=== PATIENT | male | born 1965 | race Two or more races ===

== ENCOUNTER 2023-06-06 15:20 | Emergency (ER) | payer OTHER, SELFPAY ==
[2023-06-06] VITALS (21 sets, daily range): BP systolic 103–126; BP diastolic 58–76; PULSE 64–77; RESP 15–25; TEMP 36.2; O2SAT 94–100
--- NOTE | ~2023-06-06 | XR_ITS ---
EXAMINATION: XR chest 2V Exam Date/Time: 06/06/2023 17:54 COMPUTER PROGRAMMING SUPERVISOR HISTORY: chest pain Comparison: None. RESULT: Lines, tubes, and devices: None. Lungs and pleura: Clear. Cardiomediastinal silhouette: Unremarkable. Other: No acute osseous or upper abdominal finding. IMPRESSION: No acute cardiopulmonary process. Reviewed, dictated and finalized at location K. UTER PROGRAMMING SUPERVISOR
--- NOTE | ~2023-06-06 | CT_ITS ---
EXAMINATION: CT abdomen pelvis w con DATE: 06/06/2023 18:03 INDICATION: LLQ and LUQ pain, inferior chest pain TECHNIQUE: Computed tomography (CT) of the abdomen and pelvis was performed with 100 mL Omnipaque-350 intravenous contrast. Automated exposure control and iterative reconstruction technique were employe d. The dose-length product was 281.19 mGy-cm. COMPARISON: X-ray chest, same date. FINDINGS: Lower thorax: Emphysematous change. Dependent atelectasis Liver: Normal. Biliary/Gallbladder: Gallbladder is collapsed. No bile duct dilation. Pancreas: No mass or duct dilation. Spleen: Normal. Adrenals:No mass. Kidneys: No suspicious mass, obstructing stone, or hydronephrosis. GI tract: Mild distal esophageal and gastric wall edema. No small or large bowel dilation. Normal bakari endix. Mesentery/Peritoneum: No ascites, mass, or free air. Retroperitoneum: No mass. Atherosclerotic abdominal aortic and/or arterial calcifications. Pelvis: Moderate bladder wall thickening in a partially distended urinary bladder. Soft Tissues: Uncomplicated small fat-containing bilateral angle hernias. Bones: No acute osseous finding. IMPRESSION: Mild esophagitis/gastritis. Cystitis versus wall thickening from incomplete urinary bladder distention. Reviewed, dictated and finalized at location K. LLING MACHINE OPERATOR
[2023-06-06 16:07] LABS: Basophils Absolute Auto 0.1 K/mm3 (0.0-0.1); Basophils Percent Auto 0.9 % (0.2-1.2); Eosinophils Absolute Auto 0.4 K/mm3 (0-0.3); Eosinophils Percent Auto 3.8 % (0-4.4); Hematocrit 49.2 % (42.0-52.0); Hemoglobin 16.2 g/dL (14.0-18.0); Immature Granulocyte Absolute 0.04 K/mm3 (0.00-0.031); Immature Granulocyte Percent A 0.4 % (0-0.5); Lymphocytes Absolute Auto 3.51 K/mm3 (0.9-3.2); Lymphocytes Percent Auto 33.5 % (18.3-44.2); Mean Corpuscular HGB Conc 32.9 g/dl (32-36); Mean Corpuscular Hemoglobin 29.2 pg (26-34); Mean Corpuscular Volume 88.8 fl (80-100); Mean Platelet Volume 10.1 fl (7.4-10.4); Monocytes Absolute Auto 0.4 K/mm3 (0.1-0.6); Neutrophils Percent Auto 57.4 % (45.5-73.1); Platelet Count Result 262 k/mm3 (150-375); Red Blood Count 5.54 M/mm3 (4.6-6.20); Red Cell Distribution Width 13.6 % (11.5-14.5); White Blood Count 10.5 K/mm3 (4.5-10.0)
[2023-06-06 16:12] LABS: Appearance Urine Clear (Clear); Bilirubin Urine Negative (Negative); Blood Urine Negative (Negative); Color Urine Yellow (Yellow); Glucose Urine UA Negative (Negative); Ketones Urine Negative (Negative); Leukocyte Esterase Ur Negative LEU/UL (Negative); Nitrate Urine Negative (Negative); Protein Urine Negative (Negative); Specific Grav Ur 1.015 (1.001-1.035); Urobilinogen Urine 0.2 mg/dL (<2.0)
[2023-06-06 16:14] LABS: Alanine Aminotransferase 25 U/L (6-50); Albumin Level 4.6 g/dL (3.5-5.1); Alkaline Phosphatase 62 U/L (38-126); Anion Gap 9 mmol/L (8-16); Aspartate Amino Transferase 25 U/L (17-59); Bilirubin,Total 0.5 mg/dL (0.2-1.3); Blood Urea Nitrogen 10 mg/dL (9-20); Calcium 9.1 mg/dL (8.4-10.2); Carbon Dioxide 26 mmol/L (22-30); Chloride 103 mmol/L (98-107); Estimated CRCL calculation 96 ml/min; Estimated Glomerular Filt Rate > 60; Glucose 160 mg/dL (65-110); Lipase 71 U/L (23-300); Potassium 3.6 mmol/L (3.4-5.0); Sodium 138 mmol/L (137-145)
[2023-06-06 16:20] LABS: Add Urine Microscopic? NO
--- NOTE | 2023-06-06 17:46 | ECG_ITS ---
Measurements Intervals [place] Rate: 68 P: 54 KS: 149 QRS: 85 QRSD: 95 T: 66 QT: 374 QTc: 398 Interpretive Statements SINUS RHYTHM NORMAL ECG NO PREVIOUS ECG AVAILABLE FOR COMPARISON Electronically Signed On 06-07-2023 6:13:59 SOLE LEVELER by Guille Crow D.O.
[2023-06-06 18:14] LABS: Prothrombin Time 13.7 Seconds (11.1-14.7)
[2023-06-06] MEDS: MAG HYDROX/AL HYDROX/SIMETH 30 ML UDC PO (18:14)
[2023-06-06] MEDS: FAMOTIDINE 20 MG/2 ML VIAL IV PUSH (18:14)
[2023-06-06] MEDS: SODIUM CHLORIDE 0.9% IV 1,000 ML 999 ML IV CONT (18:14)
[2023-06-06 18:15] LABS: Partial Thromboplastin Time 26.3 SECONDS (22.3-36.8)
[2023-06-06 18:28] LABS: NT Pro B Type Natriuretic Pept < 20 pg/mL (19.9-100); Troponin I < 0.012 ng/mL (0.000-0.034)
--- NOTE | 2023-06-06 19:26 | ED.ABDPAIN ---
HPI - Abdominal Pain General Chief Complaint: Abdominal Pain Stated Complaint: abd pain Time Seen by Provider: 06/06/23 17:03 History of Present Illness HPI narrative: 57-year-old male reports for evaluation for intermittent left upper quadrant, left lower quadrant and chest pain for the past 10 days. Patient states the pain goes away after eating, however gets worse when he eats tomatoes. He states the pain starts in his left upper quadrant and then moved up into his chest, that he experiences a pins and needle sensation in his left lower quadrant. At the time of my evaluation he is asymptomatic. He denies shortness of breath, fever, cough or congestion, nausea or vomiting, diarrhea, melena or hematochezia, hemoptysis, urinary complaints. States his chest pain does not radiate anywhere it is not associated with nausea or diaphoresis. No family history of coronary artery disease. He denies history of hypertension, hyperlipidemia, diabetes. Related Data Allergies Allergy/AdvReac Type Severity Reaction Status Date / Time No Known Allergies Allergy Verified 06/06/23 18:13 Review of Systems Review of Systems: CONSTITUTIONAL: Denies fever, chills, or sweats. EYES: Denies visual changes, redness, or discharge. ENT: Denies rhinorrhea, congestion, sore throat, or otalgia. CARDIOVASCULAR: See HPI RESPIRATORY: Denies cough or dyspnea. GASTROINTESTINAL: See HPI GENITOURINARY: Denies dysuria or hematuria. SKIN: Denies rash or itching. MUSCULOSKELETAL: Denies back pain, joint pain, or myalgia. NEUROLOGIC: Denies headache, numbness, or weakness. PSYCHIATRIC: Denies anxiety or depression. Exam Narrative: GENERAL: Well-appearing, well-nourished, and in no acute distress. HEAD: Normocephalic, atraumatic. EYES: PERRLA and EOMI. ENT: Nares clear, no rhinorrhea or epistaxis. Mucous membranes moist. NECK: Supple. CHEST: Clear to auscultation. No respiratory distress. HEART: Regular rate and rhythm. No murmur heard. Normal peripheral pulses. ABDOMEN: normoactive bowel sounds. Abdomen soft with mild tenderness in the left lower quadrant. No guarding, rebound or rigidity. No overlying skin changes. No CVA tenderness. EXTREMITIES: Normal range of motion. No edema. SKIN: Warm, dry, no rash. NEURO: No focal deficits. Alert and oriented x3 Course Vital Signs Vital signs: Vital Signs Temperature 97.2 F L 06/06/23 15:46 Pulse Rate 77 06/06/23 15:46 Respiratory Rate 18 06/06/23 15:46 Blood Pressure 118/67 06/06/23 15:46 Pulse Oximetry 99 06/06/23 15:46 Oxygen Delivery Room Air 06/06/23 15:46 Temperature 97.2 F L 06/06/23 15:46 Pulse Rate 64 06/06/23 21:00 Respiratory Rate 17 06/06/23 21:00 Blood Pressure 103/58 L 06/06/23 21:00 Pulse Oximetry 98 06/06/23 21:00 Oxygen Delivery Room Air 06/06/23 15:46 MDM - Abdominal Pain MDM Narrative Medical decision making narrative: 57-year-old male reports for evaluation for intermittent left upper quadrant and left lower quadrant abdominal pain and chest pain for the past 10 days. See HPI for further history. Vitals are stable and he is afebrile. he is well appearing on exam. Exam is significant for the above. Lab significant for leukocytosis of 10.5, no bandemia. Chemistries are largely unremarkable. Urinalysis unremarkable. Chest x-ray shows no acute cardiopulmonary disease. EKG shows sinus rhythm, no ischemic changes. Troponin x2 negative. Lipase normal. BNP less than 20. Coags unremarkable. CT abdomen pelvis shows mild esophagitis and gastritis. There is evidence of cystitis versus wall thickening from incomplete urinary bladder distention. Pt declining bladder scan. patient received IV fluids, GI cocktail and Pepcid with improvement symptoms. Labs and imaging discussed. symptoms seem related to esophagitis or gastritis. Plan to start him on Pepcid and encourage close PCP follow-up. Strict ED return precaution
[2023-06-06 21:14] LABS: Troponin I < 0.012 ng/mL (0.000-0.034)
--- NOTE | 2023-06-06 21:58 | PC.NURSE ---
Patient declined bladder scan. States he would like to have IV taken out and to go home.
== END 2023-06-06 22:10 | disposition home or self-care (01) ==
PROVIDERS: Emergency Medicine; Emergency Provider Physician Assistant
DX: K29.00 Acute gastritis without bleeding (principal); R07.89 Other chest pain
CPT/HCPCS: 36415; 71046; 74177; 80053; 81003; 83690; 83880; 84484; 85025; 85610; 85730; 93005; 96361; 96374; 99284; A9270; J7030; Q9967

== ENCOUNTER 2025-07-06 13:51 | Emergency (ER) | payer OTHER, SELFPAY ==
--- NOTE | ~2025-07-06 | XR_ITS ---
EXAMINATION: Lumbosacral spine 3 views: DATE: 07/06/2025. INDICATION: Low back pain radiating to right knee and ankle. TECHNIQUE: 3 views of lumbar spine. were obtained. COMPARISON: None. FINDINGS: No acute bony lesions. Mild degenerative disc changes at L4-5 level.. Pain calcific changes of abdominal aorta. IMPRESSION: 1. No acute bony lesions. Mild degenerative disc changes at L4-5 level. If symptoms are significant and not responding to conservative treatment MRI is indicated. Reviewed, dictated and finalized at location T. WASHER IMPRESSION: 1. No acute bony lesions. Mild degenerative disc changes at L4-5 level. If symp toms are significant and not responding to conservative treatment MRI is indica jase.
--- NOTE | ~2025-07-06 | US_ITS ---
EXAMINATION: US venous doppler LE RT DATE: 07/06/2025 16:42 INDICATION: Right lower extremity pain. TECHNIQUE: Grayscale ultrasound images without and with compression and Doppler ultrasound images of the right lower extremity veins were obtained. COMPARISON: Right knee x-ray dated 07/06/2025. FINDINGS: The visualized portions of right common femoral vein, profunda (deep) femoral vein, femoral vein, popliteal vein, peroneal veins, posterior tibial veins, and greater saphenous vein outflow are patent. IMPRESSION: 1. No deep venous thrombosis of major veins of right lower extremity.. Reviewed, dictated and finalized at location T. YL DISSOLVER OPERATOR
--- NOTE | ~2025-07-06 | XR_ITS ---
EXAMINATION: XR knee RT 3V DATE: 07/06/2025 16:35 INDICATION: Right knee pain. TECHNIQUE: 3 views of right knee were obtained. COMPARISON: None. FINDINGS: No acute bony lesions of the right knee. Chondrocalcinosis of lateral meniscus is noted. Small effusion in the knee joint. IMPRESSION: 1. Mild chondrocalcinosis of lateral meniscus. Small effusion in the right knee. Reviewed, dictated and finalized at location T. ECTOR OF INTERNAL REVENUE IMPRESSION: 1. Mild chondrocalcinosis of lateral meniscus. Small effusion in the right knee .
[2025-07-06 13:54] VITALS: BP 136/61; PULSE 82; RESP 20; TEMP 36.2; O2SAT 98
--- NOTE | 2025-07-06 16:08 | ED.EXTPRO ---
HPI - Extremity Problem General Chief complaint: Extremity Problem,Nontraumatic Stated complaint: RLE pain Time Seen by Provider: 07/06/25 15:38 History of Present Illness HPI Narrative: 60-year-old male presenting to the emergency department for evaluation for worsening right leg patient. Patient does have prior history of right-sided back pain did have diskectomy done approximately 3 years ago and states this did initially help his pain. Over the last 3 days patient has had worsening lower back pain and then worsening pain that radiates down his right leg involving his knee. Patient denies was of ache injury of his knee. Patient did take medications at home prior to arrival and does feel improved. Related Data Allergies Allergy/AdvReac Type Severity Reaction Status Date / Time No Known Allergies Allergy Verified 06/06/23 18:13 Review of Systems Review of Systems: All systems reviewed & are unremarkable except as noted in HPI and below Exam Narrative: APPEARANCE: Well appearing, no pain, no distress, well-nourished. HEAD: normocephalic, atraumatic. EYES: PERRLA/EOMI, conjunctivae clear. NOSE: Normal no drainage EARS:TMS clear with good light reflex. THROAT: Pharynx clear, no exudate. NECK: Supple. No adenopathy, no masses. RESPIRATORY: Airway patent, respirations nonlabored. Clear to auscultation bilaterally, no rales, rhonchi, wheezing. CARDIOVASCULAR: Regular rate and rhythm without murmurs rubs or gallops. ABDOMINAL: Soft, nontender, nondistended, normal bowel sounds MUSCULOSKELETAL: Right hip tenderness to palpation, no calf tenderness to palpation, no knee tenderness to palpation on the right side, strong distal pulses. NEURO: Alert. Cranial nerves II through XII intact. Good gait. Good coordination SKIN: Warm, dry. Normal Color Course Vital Signs Vital signs: Vital Signs Temperature 97.2 F L 07/06/25 13:54 Pulse Rate 82 07/06/25 13:54 Respiratory Rate 20 07/06/25 13:54 Blood Pressure 136/61 07/06/25 13:54 Pulse Oximetry 98 07/06/25 13:54 Temperature 97.2 F L 07/06/25 13:54 Pulse Rate 80 07/06/25 17:57 Respiratory Rate 16 07/06/25 17:57 Blood Pressure 132/84 07/06/25 17:57 Pulse Oximetry 99 07/06/25 17:57 MDM MDM Narrative Medical decision making narrative: 60-year-old male presents to the emergency department for evaluation for right knee pain and lower back pain. Patient had negative lumbar x-ray, knee x-ray and negative DVT study. I suspect patient has sciatica and his protecting the back has injured his right knee. Patient was provided Medrol Dosepak, Flexeril medications for pain control. Patient was offered crutches for limited weight-bearing on the affected knee. Patient was encouraged of close follow-up with primary care physician for additional workup. Patient and family are comfortable the plan for discharge and close follow-up. Differential Diagnosis Differential Diagnosis: Sciatica, knee strain, internal derangement of knee, DVT Imaging Data Radiologist's impression: ITS Impressions Knee X-Ray 07/06/25 16:40 IMPRESSION: 1. Mild chondrocalcinosis of lateral meniscus. Small effusion in the right knee. Lumbar Spine X-Ray 07/06/25 16:41 IMPRESSION: 1. No acute bony lesions. Mild degenerative disc changes at L4-5 level. If symptoms are significant and not responding to conservative treatment MRI is indicated. Venous Doppler Study 07/06/25 16:43 IMPRESSION: 1. No deep venous thrombosis of major veins of right lower extremity.. Discharge Plan Discharge Clinical Impression: Sciatica, Knee strain Patient Disposition: Home Condition: Stable Instructions: Antibiotic Form, Crutch Instructions (ED), Sciatica (ED), Knee Pain (ED) Additional Instructions: Medrol Dosepak as directed for inflammation. Flexeril for muscle spasm. Ibuprofen for pain control. [place] as needed for additional pain control. Crutches as needed for limited weight-bearing. Have close follow-up with your primary care physician for additional outpatient testing. Patient Language: [place] Prescriptions: New cyclobenzaprine 10 mg tablet 10 mg PO BID PRN (Reason: muscle spasm) Qty: 14 0RF hydrocodone-acetaminophen 5-325 mg tablet 1 tablet PO Q12H PRN (Reason: pain) Qty: 14 0RF methylprednisolone [Medrol ([place])] 4 mg tablets,dose pack See Rx Instructions .ROUTE .COMPLEX Qty: 21 0RF Rx Instructions: for 6 days No Action famotidine [Pepcid] 20 mg tablet 20 mg PO DAILY Qty: 30 0RF Follow-up/Referrals: PHYSICIAN,CONCILIATION COURT JUDGE [Primary Care Provider, Internal Medicine]
[2025-07-06] MEDS: HYDROcodone/acetaminophen (*CRX) 5-325 MG TABLET 1 TAB PO (16:43)
[2025-07-06] MEDS: CYCLOBENZAPRINE HCL 10 MG TABLET PO (16:43)
[2025-07-06] MEDS: KETOROLAC 30 MG/ML VIAL (*BKC) IM (16:44)
[2025-07-06] MEDS: dexAMETHasone SOD PHOS INJ 10 MG/ML 1 ML VIAL IM (16:45)
[2025-07-06 17:57] VITALS: BP 132/84; PULSE 80; RESP 16; O2SAT 99
== END 2025-07-06 17:58 | disposition home or self-care (01) ==
PROVIDERS: Emergency Provider Emergency Medicine
DX: S86.811A Strain of other muscle(s) and tendon(s) at lower leg level, right leg, initial encounter (principal); M54.41 Lumbago with sciatica, right side
CPT/HCPCS: 72100; 73562; 93971; 96372; 99284; A9270; J1100; J1885